=== PATIENT | female | born 1975 | race Caucasian/White ===

== ENCOUNTER 2019-01-12 17:12 | Emergency (ER) | payer MEDICAID ==
[~2019-01-12] VITALS: Ht 162.6 cm; Wt 71.3 kg
[~2019-01-12 17:12] MED LIST: OMEP20CA9 PO; ONDA4TAB35 PO
[2019-01-12 17:20] VITALS: Ht 162.6 cm; Wt 71.3 kg
--- NOTE | 2019-01-12 19:44 | ERD ---
ER Documentation Chief Complaint Chief Complaint pain under right arm radiating to right breast. HPI 43-year-old female with history of diabetes, presents the emergency department, complaining of progressive worsening of right shoulder pain that started approximately 1 week ago. No reports of trauma. The pain is dull, constant, worsened by shoulder movement. The patient currently reports limited range of motion. She denies distal weakness, numbness or tingling. ROS All systems reviewed and are negative except as per history of present illness. Medications Home Meds Active Scripts Hydrocodone/Acetaminophen (Madison 5-325 Tablet) 1 Each Tablet, 1 TAB PO QHS PRN for PAIN, #10 TAB Prov:JANET MAURER MD 01/12/19 Baclofen* (Baclofen*) 10 Mg Tablet, 10 MG PO QHS, #10 TAB Prov:JANET MAURER MD 01/12/19 Omeprazole* (Prilosec*) 20 Mg Capsule.dr, 20 MG PO DAILY, #10 CAP Prov:LARRY PERES PA-C 11/05/15 Ondansetron Hcl* (Zofran* ODT) 4 mg -ODT Tab.disper, 4 MG PO Q6 PRN for NAUSEA AND/OR VOMITING, #10 TAB Prov:LARRY PERES PA-C 11/05/15 Allergies Allergies: Coded Allergies: No Known Allergy (Unverified , 11/04/15) PMhx/Soc History of Surgery: Yes (c/section x 1, right shoulder) Anesthesia Reaction: No Hx Neurological Disorder: No Hx Respiratory Disorders: No Hx Cardiac Disorders: No Hx Psychiatric Problems: No Hx Miscellaneous Medical Probl: Yes (CHRONIC BACK PAIN FROM FALL 1 YEAR AGO ) Hx Alcohol Use: No Hx Substance Use: No Hx Tobacco Use: No Smoking Status: Never smoker Physical Exam Vitals Vital Signs Date Temp Pulse Resp B/P (MAP) Pulse Ox O2 O2 Flow FiO2 Time Delivery Rate 01/12/19 98.6 88 17 112/70 100 Room Air 19:53 (84) 01/12/19 98.1 72 18 109/65 99 17:20 (80) Physical Exam Const: No acute distress Head: Atraumatic Eyes: Normal Conjunctiva ENT: Normal External Ears, Nose and Mouth. Neck: Full range of motion. No meningismus. Resp: Clear to auscultation bilaterally Cardio: Regular rate and rhythm, no murmurs Abd: Soft, non tender, non distended. Normal bowel sounds Skin: No petechiae or rashes Back: No midline or flank tenderness Ext: Right shoulder: Normal inspection, decreased range of motion due to pain. Distal neurovascular exam intact. No cyanosis, or edema Neur: Awake and alert Psych: Normal Mood and Affect Procedures/MDM Acute right shoulder pain: no red flags. Differential diagnosis include but not limited to: Shoulder contusion, rotator cuff injury, tendon/ligament injury, arthritis; low suspicion for fracture, dislocation, septic arthritis. Neurovascular exam grossly intact. no clinical findings suggestive of acute i nfectious process, no acute deformity, no edema, no rashes. Physical examination and clinical presentation consistent most likely with frozen shoulder. Results and clinical impression discussed with the patient who agrees with management. The patient is stable to be treated outpatient and will be discharged home with recommendations for ice, rest, Madison and baclofen for 5 days and close monitoring. The patient was instructed to follow up with the primary care provider in the next 48h. If symptoms persist, worsen or new symptoms develop, then patient should return to the ED immediately. Instructions explained and given to patient with acknowledgment and demonstrated understanding. Disclaimer: Inadvertent spelling and grammatical errors are likely due to E HR/dictation software use and do not reflect on the overall quality of patient care. Also, please note that the electronic time recorded on this note does not necessarily reflect the actual time of the patient encounter. Departure Diagnosis: Primary Impression: Adhesive capsulitis of right shoulder Condition: Stable Additional Instructions: Muchas balta por [facility] para luo servicio. Esperamos que en luo visita a la jaime de emergencia luo problema medico haya sido solucionado y que se sienta mucho mejor. Para estar seguros que luo mejoria sigue en proceso, le pedimos el favor de hacer gus brandin de seguimiento medico con luo doctor primario en los proximos 2-4 sosa. Lleve con usted estos documentos y las medicinas recetadas. Si roxie sintomas empeoran, NO SE ESPERE, por favor regrese a jaime de emergencia INMEDIATAMENTE. En randy que usted no tenga un mdico de atencin primaria: Llame al mdico o clnica comunitaria de referencia que aparece abajo patricia las horas de consultorio para hacer gus brandin para que le vean. CLINICAS: [facility] [phone] [facility] [phone] [facility] [phone] [facility]. [facility] [phone] [facility]. [place] [phone] [facility]. [phone] JANET MARTIN MD Jan 12, 2019 19:44
[2019-01-12] MEDS ORDERED: HYDR-4011 PO (19:45)
[2019-01-12] MEDS ORDERED: BACL10TA PO (19:45)
[2019-01-12 19:53] VITALS: BP 112/70; PULSE 88; RESP 17
== END 2019-01-12 19:54 | disposition home or self-care (01) ==
LOC: FTE 17:12
DX: M75.01 Adhesive capsulitis of right shoulder (principal); E11.9 Type 2 diabetes mellitus without complications
CPT/HCPCS: 99283